=== PATIENT | female | born 1990 | race African-American/Black ===

== ENCOUNTER 2021-04-02 12:56 | Emergency (ER) | payer OTHER ==
[~2021-04-02] VITALS: Ht 154.9 cm; Wt 56.8 kg
[2021-04-02 13:38] VITALS: BP 112/57
[2021-04-02 14:12] LABS: COVID AG,FIA SOURCE NASOPHARYNGEAL
== END 2021-04-02 15:50 | disposition home or self-care (01) ==
LOC: EMS 12:58
DX: Z20.822 Contact with and (suspected) exposure to COVID-19 (principal)
CPT/HCPCS: 87426; 99282; U0003; Z7502